=== PATIENT | female | born 1980 | race African-American/Black ===

== ENCOUNTER 2016-11-10 03:33 | Inpatient (IN) | payer OTHER ==
[~2016-11-10] VITALS: Ht 180.3 cm; Wt 122.7 kg
[~2016-11-10 03:33] MED LIST: ALBUTEROL SULF8.5 GM; ALBUTEROL SULF8.5 GM IH; AMOXICILLIN500 MG PO; ATROVENT H200 INHALA IH; AUGMENTIN875 MG PO; Atrovent HFA Inhaler IH; BACTRIM,SEPT1 TABLET PO; BENADRYL50 MG PO; CEFDINIR300 MG; COLACE100 MG PO; Colace PO; EFFEXOR75 MG PO; ERGOCALCIF50000 UNIT PO; FLAGYL500 MG PO; FLEXERIL10 MG PO; FLOVENT 11120 INHALA; FLOVENT 11120 INHALA IH; FLOVENT 22120 INHALA IH; Flexeril PO; Flovent 110 mcg IH; HYDROCODON-ACE1 EAC7 PO; INDOCIN25 MG PO; KEFLEX500 MG PO; LEXAPRO20 MG PO; LIDOCAINE20 MG/1 M5 PO; Lioresal PO; MIRALAX17 GM PO; MOTRIN600 MG PO; MOTRIN800 MG PO; Miralax, Glycolax PO; NAPROSYN500 MG PO; NAPROXEN500 M1 PO; NORCO 5/3251 TABLET PO; PEPCID40 MG PO; PERCOCET 5/31 TABLET PO; PREDNISONE20 MG PO; PREDNISONE50 MG PO; PROCTOFOAM-HC10 GM PR; Percocet 5/325,Endoc PO; SIMVASTATIN20 MG PO; ULTRACET1 TABLET PO; Ultram PO; VICODIN 5-3001 EACH PO
[2016-11-10 04:05] LABS: MEAN PLAT.VOLUME 10.6 uM^3 (9.5-12.4); PLATELET COUNT 188 K/uL (156-360)
[2016-11-10 04:16] LABS: HEMATOCRIT 37.8 % (36.0-46.0); MCH 28.9 PG (29.0-34.0); MCHC 33.6 G/DL (30.0-36.0); MCV 85.9 FL (83-99); RBC DIS.WIDTH-CV 13.1 % (11.8-14.6); WHITE BLOOD COUNT 30.6 K/uL (4.1-10.2)
[2016-11-10 04:37] LABS: TROP-I INTERPRETATION NEGATIVE; TROPONIN-I < 0.01 ng/mL (0.0-0.30)
[2016-11-10 04:56] LABS: CHLORIDE 100 mEq/L (99-109); POTASSIUM 3.9 mEq/L (3.7-5.4); SODIUM 135 mEq/L (136-147)
[2016-11-10 04:58] LABS: GLUCOSE 123 mg/dL (70-99)
[2016-11-10 05:00] LABS: ANION GAP 15 MEQ/L (2-14); TOTAL BILIRUBIN 1.1 mg/dL (0.0-1.0)
[2016-11-10 05:02] LABS: ALKALINE PHOSPHATASE 67 IU/L (3-129); GFR ESTIMATE (CALCULATED) > 59 mL/min/
[2016-11-10 05:03] LABS: UREA NITROGEN (BUN) 11 mg/dL (9-23)
[2016-11-10 05:04] LABS: DIRECT BILIRUBIN 0.6 mg/dL (0.0-0.3)
[2016-11-10 05:05] LABS: LIPASE 5 U/L (1.0-51.0)
[2016-11-10 05:12] LABS: QUANTITATIVE HCG < 4.0 MIU/ML
[2016-11-10 05:30] LABS: INFLUENZA A VIRAL ANTIGEN NEGATIVE; INFLUENZA B VIRAL ANTIGEN NEGATIVE
[2016-11-10 06:02] LABS: ADD MIUA? YES; BILIRUBIN NEGATIVE; BLOOD SMALL; COLOR YELLOW ((YELLOW)); GLUCOSE (STRIP) NEGATIVE; KETONES NEGATIVE; LEUKOCYTES LARGE; NITRITE POSITIVE; PROTEIN (STRIP) 30; SPECIFIC GRAVITY 1.009 (1.000-1.030)
[2016-11-10 06:19] LABS: BACTERIA RARE /HPF; EPITHELIAL CELLS RARE /HPF; MUCUS TRACE /LPF; RED BLOOD CELLS 0-5 /HPF (0-5); WHITE BLOOD CELLS TNTC /HPF (0-5)
[2016-11-10 06:28] LABS: AMPHETAMINE NEGATIVE (500 ng/mL); BENZODIAZEPINES NEGATIVE (150 ng/mL); COCAINE NEGATIVE (150 ng/mL); METHAMPHETAMINE NEGATIVE (500 ng/mL); OPIATES (MORPHINE) PRESUMPTIVE POSITIVE (100 ng/mL); PHENCYCLIDINE NEGATIVE (25 ng/mL); THC CANNABINOIDS PRESUMPTIVE POSITIVE (50 ng/mL)
[2016-11-10 06:29] LABS: BARBITURATES NEGATIVE (200 ng/mL); METHADONE NEGATIVE (200 ng/mL); OXYCODONE PRESUMPTIVE POSITIVE (100 ng/mL); PROPOXYPHENE NEGATIVE (300 ng/mL); TRICYCLIC ANTIDEPRESSANTS NEGATIVE (300 ng/mL)
[2016-11-10 06:35] LABS: ADD MEDTOX COMMENT Y; INTERNAL CONTROLS VALID? YES
[2016-11-10 10:08] LABS: APPEARANCE CLEAR/COLORLESS; RED CELL AREA COUNTED 18; RED CELL COUNT 0 /MM^3 (0-1); RED CELL DILUTION 1; WBC AREA COUNTED 18; WBC DILUTION 1; WHITE CELL COUNT 1 /MM^3 (0-5); WHITE CELL RAW COUNT 1
[2016-11-10 12:04] LABS: TROP-I INTERPRETATION NEGATIVE; TROPONIN-I < 0.01 ng/mL (0.0-0.30)
[2016-11-10 12:41] LABS: CSF EOSINOPHILS 0 % (0-25); MONO RAW COUNT 11; MONONUCLEAR WBC'S 100 % (50-90); POLYNUCLEAR WBC'S 0 % (0-3)
[2016-11-10 13:12] VITALS: BP 128/73
[2016-11-10 13:17] VITALS: BP 128/73
[2016-11-10 16:21] VITALS: BP 126/79
[2016-11-10 17:03] LABS: TROP-I INTERPRETATION NEGATIVE; TROPONIN-I 0.01 ng/mL (0.0-0.30)
[2016-11-10 20:22] VITALS: BP 134/67
[2016-11-11] VITALS (7 sets, daily range): BP systolic 132–175; BP diastolic 66–84
[2016-11-11 06:25] LABS: ANION GAP 7 MEQ/L (2-14); CHLORIDE 105 MEQ/L (99-109); GFR ESTIMATE (CALCULATED) > 59 mL/min/; GLUCOSE 109 mg/dL (70-99); POTASSIUM 3.9 MEQ/L (3.7-5.4); SAMPLE HEMOLYSIS CHECK 0; SAMPLE ICTERIC CHECK 0; SAMPLE LIPEMIA CHECK 0; SODIUM 137 MEQ/L (136-147); UREA NITROGEN (BUN) 9 mg/dL (9-23)
[2016-11-11 06:40] LABS: HEMATOCRIT 30.8 % (36.0-46.0); MCH 28.1 PG (29.0-34.0); MCHC 32.1 G/DL (30.0-36.0); MCV 87.5 FL (83-99); MEAN PLAT.VOLUME 11.1 uM^3 (9.5-12.4); PLATELET COUNT 170 K/uL (156-360); RBC DIS.WIDTH-CV 13.5 % (11.8-14.6); RBC DIS.WIDTH-SD 43.5 % (39-53); RED BLOOD COUNT 3.52 M/uL (3.80-5.20)
[2016-11-11 16:46] LABS: HSV CSF Spec Source CSF (())
[2016-11-12 03:58] VITALS: BP 138/80
[2016-11-12 05:45] LABS: ALKALINE PHOSPHATASE 63 IU/L (3-129); ANION GAP 9 MEQ/L (2-14); CHLORIDE 105 MEQ/L (99-109); GFR ESTIMATE (CALCULATED) > 59 mL/min/; GLUCOSE 103 mg/dL (70-99); POTASSIUM 3.8 MEQ/L (3.7-5.4); SAMPLE HEMOLYSIS CHECK 0; SAMPLE ICTERIC CHECK 0; SAMPLE LIPEMIA CHECK 0; SODIUM 136 MEQ/L (136-147); TOTAL BILIRUBIN 0.4 MG/DL (0.0-1.0); UREA NITROGEN (BUN) 7 mg/dL (9-23)
[2016-11-12 06:43] LABS: EOSINOPHIL (%) 0.1 % (0-5); HEMATOCRIT 31.1 % (36.0-46.0); IMMATURE GRANULOCYTE (%) 1.9 % (0.0-0.7); IMMATURE GRANULOCYTE COUNT 0.3 K/uL; INSTRUMENT ABS NEUTROPHIL CT 10.2 K/uL; LYMPHOCYTE COUNT 1.9 K/uL (1.0-2.8); MCH 28.5 PG (29.0-34.0); MCHC 32.5 G/DL (30.0-36.0); MCV 87.6 FL (83-99); MEAN PLAT.VOLUME 11.2 uM^3 (9.5-12.4); MONOCYTE (%) 12.3 % (3-12); MONOCYTE COUNT 1.7 K/uL (0-0.8); NEUTROPHIL (%) 72.3 % (45-76); NEUTROPHIL COUNT 10.2 K/uL (1.8-6.4); PLATELET COUNT 169 K/uL (156-360); RBC DIS.WIDTH-CV 13.8 % (11.8-14.6); RBC DIS.WIDTH-SD 44.4 % (39-53); RED BLOOD COUNT 3.55 M/uL (3.80-5.20); WHITE BLOOD COUNT 14.1 K/uL (4.1-10.2)
[2016-11-12 07:00] VITALS: BP 130/63
[2016-11-12 11:27] VITALS: BP 148/74
[2016-11-12 12:59] LABS: C DIFF TOXIN NEGATIVE (NEGATIVE)
[2016-11-12 13:02] LABS: PROBE CHECK PASS; SPECIMEN PROCESSING CONTROL PASS
[2016-11-12 15:04] VITALS: BP 135/67
[2016-11-12 15:16] VITALS: BP 154/75
[2016-11-12 22:46] VITALS: BP 159/72
[2016-11-13 03:16] VITALS: BP 160/90
[2016-11-13 07:13] LABS: EOSINOPHIL (%) 0.8 % (0-5); EOSINOPHIL COUNT 0.1 K/uL (0-0.3); HEMATOCRIT 32.9 % (36.0-46.0); IMMATURE GRANULOCYTE (%) 4.9 % (0.0-0.7); IMMATURE GRANULOCYTE COUNT 0.6 K/uL; INSTRUMENT ABS NEUTROPHIL CT 6.7 K/uL; LYMPHOCYTE COUNT 2.4 K/uL (1.0-2.8); MCHC 31.6 G/DL (30.0-36.0); MCV 88.4 FL (83-99); MEAN PLAT.VOLUME 11.1 uM^3 (9.5-12.4); MONOCYTE (%) 17.5 % (3-12); MONOCYTE COUNT 2.1 K/uL (0-0.8); NEUTROPHIL (%) 56.3 % (45-76); NEUTROPHIL COUNT 6.7 K/uL (1.8-6.4); PLATELET COUNT 203 K/uL (156-360); RBC DIS.WIDTH-CV 13.9 % (11.8-14.6); RED BLOOD COUNT 3.72 M/uL (3.80-5.20); WHITE BLOOD COUNT 11.9 K/uL (4.1-10.2)
[2016-11-13 07:40] LABS: ALKALINE PHOSPHATASE 66 IU/L (3-129); ANION GAP 9 MEQ/L (2-14); CHLORIDE 104 MEQ/L (99-109); GFR ESTIMATE (CALCULATED) > 59 mL/min/; GLUCOSE 95 mg/dL (70-99); POTASSIUM 3.8 MEQ/L (3.7-5.4); SAMPLE HEMOLYSIS CHECK 0; SAMPLE ICTERIC CHECK 0; SAMPLE LIPEMIA CHECK 0; SODIUM 139 MEQ/L (136-147); TOTAL BILIRUBIN 0.4 MG/DL (0.0-1.0); UREA NITROGEN (BUN) 4 mg/dL (9-23)
[2016-11-13 08:00] VITALS: BP 143/60
[2016-11-13 11:00] VITALS: BP 159/86
[2016-11-13 16:00] VITALS: BP 155/92
[2016-11-13 18:49] VITALS: BP 153/73
[2016-11-14 07:27] LABS: HEMATOCRIT 30.9 % (36.0-46.0); MCH 28.2 PG (29.0-34.0); MCHC 31.7 G/DL (30.0-36.0); MCV 88.8 FL (83-99); MEAN PLAT.VOLUME 11.3 uM^3 (9.5-12.4); PLATELET COUNT 215 K/uL (156-360); RBC DIS.WIDTH-CV 13.7 % (11.8-14.6); RBC DIS.WIDTH-SD 44.4 % (39-53); RED BLOOD COUNT 3.48 M/uL (3.80-5.20); WHITE BLOOD COUNT 10.5 K/uL (4.1-10.2)
[2016-11-14 07:34] LABS: ANION GAP 8 MEQ/L (2-14); CHLORIDE 105 MEQ/L (99-109); GFR ESTIMATE (CALCULATED) > 59 mL/min/; GLUCOSE 87 mg/dL (70-99); SAMPLE HEMOLYSIS CHECK 0; SAMPLE ICTERIC CHECK 0; SAMPLE LIPEMIA CHECK 0; SODIUM 139 MEQ/L (136-147); UREA NITROGEN (BUN) 4 mg/dL (9-23)
[2016-11-14 08:04] VITALS: BP 145/82
[2016-11-14 09:22] LABS: ABS NEUTROPHIL COUNT 5.9; BAND NEUTROPHILS 0.9 % (0-8.0); BASOPHILS 0.9 %; EOSINOPHIL ABS CT 0.1; EOSINOPHILS 0.9 % (0-5.0); INSTRUMENT ABS NEUTROPHIL CT 5.5 K/uL; MYELOCYTES 2.6 %; PLAT.SUFFICIENCY ADEQUATE; SEG.NEUTROPHILS 54.9 % (46.0-76.0)
[2016-11-14] MEDS ORDERED: PERCOCET 5/31 TABLET PO (09:52)
[2016-11-14] MEDS ORDERED: NICOTINE PATCH1 EAC2 TD (09:52)
[2016-11-14] MEDS ORDERED: CIPRO500 MG PO (09:52)
== END 2016-11-14 11:40 | disposition home or self-care (01) | DRG 872 ==
LOC: EME 03:33 → 5EAST 10:35 → EDOF 10:35 → 5EAST 12:25
PROVIDERS: Emergency Medicine; Hospitalist; Internal Medicine
DX: A41.51 Sepsis due to Escherichia coli [E. coli] (principal); N10 Acute pyelonephritis; B96.20 Unspecified Escherichia coli [E. coli] as the cause of diseases classified elsewhere; F12.10 Cannabis abuse, uncomplicated; N39.3 Stress incontinence (female) (male); E78.5 Hyperlipidemia, unspecified; J45.909 Unspecified asthma, uncomplicated; G89.29 Other chronic pain; F31.9 Bipolar disorder, unspecified; E66.9 Obesity, unspecified; F17.210 Nicotine dependence, cigarettes, uncomplicated; Z68.37 Body mass index [BMI] 37.0-37.9, adult
CPT/HCPCS: 70450; 71020; 74177; 77003; 80048; 80053; 80076; 80170; 81003; 82945; 83605; 83690; 84157; 84484; 84702; 84999; 85025; 85027; 87040; 87070; 87077; 87086; 87186; 87205; 87493; 87502; 87529 90; 87801; 89051; 93005; 94640; 94640 76; 94760; 99202; 99281; 99285; J0696; J0780; J1100; J1170; J1200; J1580; J1650; J1885; J2060; J2270; J2405; J2543; J3010; J3370; J3480; J7030; J7050

== ENCOUNTER 2017-05-04 06:49 | Emergency (ER) | payer OTHER ==
[~2017-05-04] VITALS: Ht 175.3 cm; Wt 127.5 kg
[~2017-05-04 06:49] MED LIST changes: +CIPRO500 MG PO; +NICOTINE PATCH1 EAC2 TD
[2017-05-04 08:13] LABS: HEMATOCRIT 37.6 % (36.0-46.0); MCH 28.4 PG (29.0-34.0); MCHC 32.4 G/DL (30.0-36.0); MCV 87.6 FL (83-99); MEAN PLAT.VOLUME 10.9 uM^3 (9.5-12.4); PLATELET COUNT 255 K/uL (156-360); RBC DIS.WIDTH-CV 13.3 % (11.8-14.6); RBC DIS.WIDTH-SD 42.9 % (39-53); RED BLOOD COUNT 4.29 M/uL (3.80-5.20); WHITE BLOOD COUNT 11.4 K/uL (4.1-10.2)
[2017-05-04 08:48] LABS: ALKALINE PHOSPHATASE 52 IU/L (3-129); ANION GAP 8 MEQ/L (2-14); CHLORIDE 102 MEQ/L (99-109); GFR ESTIMATE (CALCULATED) > 59 mL/min/; GLUCOSE 111 mg/dL (70-99); POTASSIUM 3.9 MEQ/L (3.7-5.4); SAMPLE HEMOLYSIS CHECK 0; SAMPLE ICTERIC CHECK 0; SAMPLE LIPEMIA CHECK 0; SODIUM 137 MEQ/L (136-147); TOTAL BILIRUBIN 0.5 MG/DL (0.0-1.0); UREA NITROGEN (BUN) 11 mg/dL (9-23)
[2017-05-04 08:59] LABS: ADD MIUA? YES; BILIRUBIN NEGATIVE; BLOOD SMALL; COLOR YELLOW ((YELLOW)); GLUCOSE (STRIP) NEGATIVE; KETONES NEGATIVE; LEUKOCYTES NEGATIVE; NITRITE NEGATIVE; PROTEIN (STRIP) NEGATIVE; UROBILINOGEN 0.2 MG/DL (0.2-1.0)
[2017-05-04 09:03] LABS: BACTERIA NONE SEEN /HPF; EPITHELIAL CELLS RARE /HPF; MUCUS NONE SEEN /LPF; RED BLOOD CELLS 0-5 /HPF (0-5); UCUL ADDED? NO; WHITE BLOOD CELLS 0-5 /HPF (0-5)
[2017-05-04 09:10] LABS: QUANTITATIVE HCG < 4.0 MIU/ML
[2017-05-04] MEDS ORDERED: NAPROSYN500 MG PO (10:59)
[2017-05-04] MEDS ORDERED: GUAIFENESIN600 M1 PO (10:59)
[2017-05-04] MEDS ORDERED: FLONASE16 G1 BOTH NARES (10:59)
[2017-05-04 11:13] VITALS: BP 154/89
== END 2017-05-04 11:19 | disposition home or self-care (01) ==
LOC: EME 06:49
PROVIDERS: Nurse Practitioner Family
DX: J32.9 Chronic sinusitis, unspecified (principal); R10.31 Right lower quadrant pain; Z87.448 Personal history of other diseases of urinary system; J45.909 Unspecified asthma, uncomplicated; F17.200 Nicotine dependence, unspecified, uncomplicated; Z98.51 Tubal ligation status
CPT/HCPCS: 70487; 80053; 81003; 84702; 85027; 99281; 99285; J1885; J2060; J3010; J7030